=== PATIENT | male | born 1985 | race Caucasian/White ===

== ENCOUNTER 2025-01-13 09:01 | Outpatient (AMB) | payer OTHER, SELFPAY ==
--- NOTE | 2025-01-13 09:10 | A.PHYSOV ---
Vital Signs 01/13/25 09:16 Height 5 ft 8 in Weight 185 lb BMI 28.1 Intake Visit Reasons: Wants back injection-last seen June 2024 Intake Note: Patient is a 39 year old male here for low back pain. patient is interested in having another injection. 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 The patient underwent a caudal injection in May, which resulted in a 50% reduction in pain for 6 months. Patient reports his pain has returned despite performing her physician directed home exercise plan and using his medications as prescribed. Over the summer, the patient's symptoms improved to the point of having no pain at all. However, the pain has returned in the last 3-4 weeks to about a 50% level. The patient tolerated the previous procedure well and would like to have another injection for pain relief. He has pain level today of 7/10. Pain Description - Onset: The patient's symptoms returned in the last 3-4 weeks. - Severity: Pain is currently at about 50% of its previous level. - Relieving Factors: A previous caudal injection in May provided significant pain relief, with symptoms abating completely over the summer. Procedure: Caudal injection 06/05/2024 50% reduction of his pain [facility] Surgical History History of cancer surgery Social History Alcohol intake: current Alcohol intake frequency: holidays/special occasions only Patient Tobacco Use Status: Never used Tobacco Use of substances other than those prescribed or required for medical reasons: No Current occupational status: employed Review of Systems Narrative Review of Systems - Musculoskeletal: Reports recurrence of chronic pain. Physical Exam Exam Exam: Physical Exam Lumbar Spine: Examination of his lumbar spine, there is no visible swelling or deformity. He is tender to lower lumbar facets. Has full range of motion of his lumbar spine with pain. He does have an increase in pain with facet loading. Special Tests: Lhermittes sign was negative Heel Toe walk is normal Left straight leg raise: Negative Right straight leg raise: Negative Special tests More test is negative Ganslen's test is negative SI Joint compression test negative Janina test negative Piriformis stretch is negative Lower Extremities: Full range of motion bilateral lower extremities. No calf pain or edema. Neuro: Sensation: Intact to lower extremities bilaterally Strength L2 (Psoas): 5/5 on the left and 5/5 on the right. L3 (Quads): 5/5 on the left and 5/5 on the right. L4 (Ant tibialis): 5/5 on the left and 5/5 on the right. L5 (EHL) 5/5 on the left and 5/5 on the right. S1 (Gastroc): 5/5 on the left and 5/5 on the right. DTR L4: (Patellar) Left 2 Right 2 S1: (Achilles) Left 1 Right 1 Babinski Downgoing No pathologic clonus. No involuntary movement. Vital Signs: BMI result Body Mass Index 28.1 Assessment & Plan Assessment & Plan (1) Lumbar radiculopathy: Code(s): M54.16 - Radiculopathy, lumbar region Category: Medical (2) Lumbar spondylosis: Code(s): M47.816 - Spondylosis without myelopathy or radiculopathy, lumbar region Category: Medical Plan Pain Management - Analgesia: The patient received significant relief from a caudal injection in May, with an initial 50% pain reduction that improved to complete resolution over the summer. - Pain has since returned to a 50% level, and the patient is requesting a repeat injection. - Adverse Effects: The patient tolerated the previous procedure well. Plan Patient was informed and verbally consented to the use of an ambient scribe for clinic note documentation during this visit. 1. Chronic Pain The patient has had a good response to a prior caudal injection for chronic pain and is experiencing a recurrence of symptoms. A repeat caudal injection is planned. Insurance authorization will be obtained for the procedure. The patient will receive a prescription for an antibiotic to be taken one hour prior to the injection. A follow-up appointment will be scheduled after the injection, which the patient can cancel if feeling well. Discussion Notes I discussed the plan to repeat the caudal injection with the patient, who is agreeable. I reviewed the patient's history, noting the excellent response to the prior injection in May, and the recent return of symptoms in the past 3-4 weeks. I explained that we would obtain insurance authorization, after which our office will call to schedule the procedure. I informed the patient that a prescription for an antibiotic will be sent to the patient's pharmacy, to be taken one hour before the injection. I also instructed the patient that a follow-up appointment would be made, but it can be canceled with a phone call if the patient's pain is well-controlled. I assisted the patient with updating the patient's preferred pharmacy. Patient Instructions - We will seek approval from your insurance company for another caudal injection. - Once approved, our staff will call you to schedule the procedure. - A prescription for an antibiotic will be sent to your pharmacy. - Please take this medication one hour before you arrive for your injection. - Please make sure your pharmacy information is up to date with our lockstitch front edge tape sewer staff. - A follow-up visit will be scheduled for you after the injection. - If you are feeling better and do not need to come in, please call our office to cancel that appointment. Medications: New levofloxacin 1 po, 1 hour prior to procedure 500 mg PO DAILY 1 tab 0RF M47.816 - Spondylosis without myelopathy or radiculopathy, lumbar region, M54.16 - Radiculopathy, lumbar region Coding Level of Care Code Tele Est Pt Level 3 (18842) Diagnoses Lumbar radiculopathy M54.16 Lumbar spondylosis M47.816
[2025-01-13 09:16] VITALS: BMI 28.1
--- OUTSIDE RECORDS SUMMARY | 2025-01-13 09:34 | XMS_ITS | Clinical Summary ---
Author Organization [facility] Address [address] [place] [address] Care Team Providers Care Emergency Nurse Name Role Phone Unavailable Primary Care Provider Unavailabl e Social History Tobacco Use Types Packs/Day Years Used Date Smoking Tobacco: Never Assessed Sex and Gender Information Value Date Recorded Sex Assigned at Not on file Gender Identity Not on file Sexual Orientation Not on file Plan of Treatment Not on file
--- OUTSIDE RECORDS SUMMARY | 2025-01-13 09:34 | XMS_ITS | Clinical Summary ---
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 Circuit Board Assembler Name Role Phone Pardeep Prince NP Primary Care Provide r Allergies No known active allergies Medications No known medications Active Problems Problem Noted Date Diagnosed Date Encounter for screening colonoscopy 10/06/2018 Adenocarcinoma of colon 01/19/2016 Encounters Date Type Department Care Team Description 10/21/2024 11:15 AM EDT Office Visit [facility] Internal Medicine [address] [place] [phone] Marketing Technology Specialist: Pardeep Ocasio NP Healthcare maintenance (Primary Dx); Screening for HIV (human immunodeficiency virus); Need for hepatitis C screening test from Last 3 Months Family History Medical History Relation Name Comments No Known Problems Brother Wang Syndrome Father No Known Problems Mother Relation Name Status Comments Brother Alive Father Alive Mother Alive Social History Tobacco Use Types Packs/Day Years Used Date Smoking Tobacco: Never Smokeless Tobacco: Never Comments:: Alcohol Use Standard Drinks/Week Comments Yes 0 (1 standard drink = 0.6 oz pur e alcohol) socially Hunger Vital Sign Answer Date Recorded Within the past 12 months, y ou worried that your food would run out before you got the money to buy more. Never true 10/15/19 25 Within the past 12 months, t he food you bought just didn't last and you didn't have money to get more. Never true 10/14/2024 [facility] Utilities Answer Date Recorded In the past 12 months has e [place], oil, or water [employer] threatened to shut off services in your home? No 10/14/2024 Transportation Answer Date Recorded In the past 12 months, has l ack of reliable transportation kept you from medical appointments, meetings, work or from getting things needed for daily living? No 10/14/2024 Housing Answer Date Recorded Housing Risk Low 2 10/14/2024 Housing Risk Medium Not on file 10/14/2024 Housing Risk High Not on file 10/14/2024 What is your living situation today? 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 Not on file Not on file Last Filed Vital Signs Vital Sign Reading Time Taken Comments Blood Pressure 118/80 10/21/2024 11:44 AM EDT Pulse 79 10/21/2024 11:13 AM EDT Temperature 36.4 C (97.5 F) 10/21/2024 11:13 AM EDT Respiratory Rate 18 01/26/2019 11:1 4 AM EST Oxygen Saturation 100% 01/26/2019 11: 14 AM EST Inhaled Oxygen Concentration - - Weight 86.1 kg (189 lb 12.8 oz) 025 11:13 AM EDT Height 170.2 cm (5' 7 ) 01/26/2019 10:0 2 AM EST Body Mass Index 29.73 01/26/2019 10:02 AM EST Plan of Treatment Upcoming Encounters Date Type Department Care Team (Late st Contact Info) Description 10/25/2025 10:15 AM EDT Office Visit [facility] Internal Medicine [address] [place] [address] Marketing Technology Specialist: Pardeep Ocasio HEALTH ANALYST [address], [place] [id number] Health Maintenance Due Date Last Done Comments Varicella Vaccines (1 of 2 - 13+ 2-dose series) 08/09/2000 Pneumococcal Vaccine: Pediatric (0-5 Years) and At-Risk Patients (6-50 Years) (1 of 2 - PCV) 08/09/2006 COVID-19 Vaccine (2 - Pfizer risk series) 06/12/2020 05/22/2020 Influenza Vaccine (#1) 2024 2, 11/01/2016, 12/22/2015, Additional history exists Depression Screening and Follow-Up 10/14/2025 10/14/2024 [employer] [facility] [employer] Annual Screening 10/14/2025 10/14/2024 DTaP,Tdap,and Td Vaccines (9 - Td or Tdap) 06/04/2033 06/05/2023, 10/10/2016, 08/02/2005, Additional history exists HIV Screening 10/21/2036 Postponed from 1987 (Patient Declined) Hepatitis B Vaccines Completed 02/16/1999, 11/10/1998, 10/10/1998 Alcohol/Substance Use Screening Completed 10/14/2024 Hepatitis C Screening Discontinued Procedures * Due to [place] [employer] law, this organization might not be sharing negative HIV tests. Procedure Name Priority Date/Time Associated Diagnosis Comments HEMOGLOBIN A1C Routine 10/21/2024 11:55 AM EDT Healthcare maintenance COMPREHENSIVE METABOLIC PANEL Routine 10/21/2024 11:55 AM EDT Healthcare maintenance LIPID PANEL W/REFLEX TO DIRECT LDL Routine 10/21/2024 11:55 AM EDT Healthcare maintenance CBC AUTO DIFFERENTIAL Routine 10/21/2024 11:55 AM EDT Healthcare maintenance from Last 3 Months Results * Due to [place] [employer] law, this organization might not be sharing negative HIV tests. * (ABNORMAL) Lipid Panel w/Reflex to Direct LDL (10/21/2024 11:55 AM EDT) Cholesterol 177 <=199 mg/dL 10/21/2024 5:17 PM EDT [facility] Triglycerides 98 <=149 mg/dL 10/21/2024 5:17 PM EDT [facility] Cholesterol, HDL 60(H) 40 - 59 mg/dL 10/21/2024 5:17 PM EDT [email or web address] Cholesterol, Non-HDL 117 mg/dL 10/21/2024 5:17 PM EDT [facility]LaZ[facility]WA [facility] LDL Cholesterol 97 <100 mg/dL [facility] MAN[facility] 10/21/2024 5:17 PM EDT [facility] Comment:LDL-C is calculated using the Friedewald calculation. VLDL 19.6 mg/dL [facility] 10/21/2024 5:17 PM EDT [facility] Cholesterol/HDL Ratio 3.0 [facility] MANUAL 10/21/2024 5:17 PM EDT [facility]annado[facility] Blood Structure of peripheral vein / Unknown Venipuncture / Unknown 10/21/2024 11:55 AM EDT 10/21/2024 11:55 AM EDT Narrative [facility] - 10/21/2024 5:17 PM EDT Adult Treatment Panel III Guidelines of NCEP 2001 Category: Total Cholesterol (mg/dL) Desirable <200 Borderline High 200-239 High >=240 Category: LDL Cholesterol (mg/dL) Optimal <100 Near Optimal/Above Optimal 100-129 Borderline High 130-159 High 160-189 Very High >=190 Category: HDL Cholesterol (mg/dL) Low <40 High >=60 NCEP's Expert Panel on Blood Cholesterol in Children and Adolescents Category: Total Cholesterol (mg/dL) Desirable <170 Borderline High 170-199 High >=200 Category: LDL Cholesterol (mg/dL) Desirable <110 Borderline High 110-129 High >=130 us Pardeep Prince HEALTH ANALYST LAB BLOOD ORDERABLES Final Result [facility] [address] [place] [address], [place] * CBC Auto Differential (10/21/2024 11:55 AM EDT) WBC 7.1 3.8 - 10.8 10*3/uL 10/21/2024 2:10 PM EDT [facility] RBC 5.72 4.20 - 5.80 10*6/uL 10/21/2024 2:10 PM EDT [facility] Hemoglobin 16.2 13.2 - 17.1 g/dL 10/21/2024 2:10 PM EDT [facility] Hematocrit 48.2 38.5 - 50.0 % 10/21/2024 2:10 PM EDT [facility] MCV 84.3 80.0 - 100.0 fL 10/21/2024 2:10 PM EDT [facility] MCH 28.3 27.0 - 33.0 pg 10/21/2024 2:10 PM EDT [facility] MCHC 33.6 32.0 - 36.0 g/dL 10/21/2024 2:10 PM EDT [facility] RDW 12.6 11.0 - 15.0 % 10/21/2024 2:10 PM EDT [facility] Platelets 246 140 - 400 10*3/uL 10/21/2024 2:10 PM EDT [facility] MPV 10.2 7.5 - 12.5 fL 10/21/2024 2:10 PM EDT [facility] Neutrophil % 62.3 % 10/21/2024 2:10 PM EDT [facility] Immature Grans % 0.4 0.0 - 0.9 % 10/21/2024 2:10 PM EDT [facility] Lymphocyte % 23.2 % 10/21/2024 2:10 PM EDT [facility] Monocyte % 11.9 % 10/21/2024 2:10 PM EDT [facility] Eosinophil % 1.5 % 10/21/2024 2:10 PM EDT [facility] Basophil % 0.7 % 10/21/2024 2:10 PM EDT [facility] Neutrophil # 4.43 1.50 - 7.80 10*3/uL 10/21/2024 2:10 PM EDT [facility] Immature Grans # 0.03 <=0.03 10*3/uL 10/21/2024 2:10 PM EDT [facility] Lymphocyte # 1.70 0.85 - 3.90 10*3/uL 10/21/2024 2:10 PM EDT [facility] Monocyte # 0.90 0.20 - 0.95 10*3/uL 10/21/2024 2:10 PM EDT [facility] Eosinophil # 0.10 0.02 - 0.50 10*3/uL 10/21/2024 2:10 PM EDT [facility] Basophil # 0.10 0.00 - 0.20 10*3/uL 10/21/2024 2:10 PM EDT [facility] nRBC % 0.0 /100 WBCs 10/21/2024 2:10 PM EDT [facility] nRBC # <0.01 <0.01 10*3/uL 10/21/2024 2:10 PM EDT [facility] Blood Structure of peripheral vein / Unknown Venipuncture / Unknown 10/21/2024 11:55 AM EDT 10/21/2024 11:55 AM EDT us Pardeep Prince HEALTH ANALYST LAB BLOOD ORDERABLES Final Result [facility] [address] [place] [address], * Hemoglobin A1c (10/21/2024 11:55 AM EDT) Hemoglobin A1C 4.8 <5.7 % 10/21/2024 9:07 PM EDT [facility] Comment: For the purpose of screening for the presence of diabetes: <5.7% Consistent with the absence of diabetes 5.7-6.4% Consistent with increased risk for diabetes (prediabetes) > or =6.5% Consistent with diabetes This assay result is consistent with a decreased risk of diabetes. Currently, no consensus exists regarding use of hemoglobin A1c for diagnosis of diabetes in children. According to [place] Diabetes Association (ADA) guidelines, hemoglobin A1c <7.0% represents optimal control in non- diabetic patients. Different metrics may apply to specific patient populations. Standards of Medical Care in Diabetes(ADA). eAG (MG/DL) 91 mg/dL 10/21/2024 9:07 PM EDT [facility] eAG (MMOL/L) 5.0 mmol/L 10/21/2024 9:07 PM EDT [facility] Blood Structure of peripheral vein / Unknown Venipuncture / Unknown 10/21/2024 11:55 AM EDT 10/21/2024 11:55 AM EDT [facility] - 10/21/2024 9:07 PM EDT [facility] Received Date: Pardeep Prince HEALTH ANALYST LAB BLOOD ORDERABLES Final Result [facility] [address] [facility] [address] [facility], [place] [address], [facility] [address], [place] [address], * Comprehensive metabolic panel (10/21/2024 11:55 AM EDT) NA 141 135 - 145 mmol/L 10/21/2024 5:17 PM EDT [facility] K 4.1 3.5 - 5.3 mmol/L 10/21/2024 5:17 PM EDT [facility] Cl 103 98 - 107 mmol/L 10/21/2024 5:17 PM EDT [facility] CO2 27 22 - 32 mmol/L 10/21/2024 5:17 PM EDT [facility] Anion Gap 11 5 - 15 [facility] 10/21/2024 5:17 PM EDT [facility] Glucose 98 65 - 99 mg/dL 10/21/2024 5:17 PM EDT [facility] Creatinine 0.92 0.60 - 1.30 mg/dL 10/21/2024 5:17 PM EDT [facility] Calcium 10.1 8.6 - 10.5 mg/dL 10/21/2024 5:17 PM EDT [facility] Total Protein 7.8 6.0 - 8.0 g/dL 10/21/2024 5:17 PM EDT [facility] Albumin 4.8 3.5 - 5.2 g/dL 10/21/2024 5:17 PM EDT [facility] Bilirubin, Total 0.5 0.2 - 1.2 mg/dL 10/21/2024 5:17 PM EDT [facility] Alkaline Phosphatase 55 35 - 129 U/L 10/21/2024 5:17 PM EDT [facility] AST 28 10 - 40 U/L 10/21/2024 5:17 PM EDT [facility] ALT 22 10 - 40 U/L 10/21/2024 5:17 PM EDT [facility] BUN 13 7 - 23 mg/dL 10/21/2024 5:17 PM EDT [facility] eGFR >90 >=60 mL/min/1. 73m2 [facility] 10/21/2024 5:17 PM EDT [facility] Comment:The estimated glomer ular filtration rate (eGFR) is calculated using a new formula developed by the NKF-ASN task force to eliminate race-based correction factors. The new formula uses serum/plasma creatinine, age, and gender to determine eGFR. A value below 60mls/min might indicate kidney disease and will be flagged. For additional information, see Prieto et al, Am J Kidney Dis. 2021;79(2):268- 288, A Unifying Approach for GFR estimation: Recommendations of the NKF-ASN Task Force on Reassessing the Inclusion of Race in Diagnosing Kidney Disease . Globulin, Total 3.0 2.1 - 4.2 g/dL [facility] 10/21/2024 5:17 PM EDT [facility] A/G Ratio 1.6 1.5 - 3.0 [facility] 10/21/2024 5:17 PM EDT [facility] Blood Structure of peripheral vein / Unknown Venipuncture / Unknown 10/21/2024 11:55 AM EDT 10/21/2024 11:55 AM EDT Pardeep Prince HEALTH ANALYST LAB BLOOD ORDERABLES Final Result [facility] [address] [place] [address], from Last 3 Months Insurance AETNA AETNA Advance Directives * Full Code (Latest Code Status on File) Date Activated Date Inactivated Comments 01/21/2017 8:39 AM 01/21/2017 11:52 AM Care Teams Hand Printed Circuit Board Assembler Relationship Specialty Start Date End Date Pardeep Prince NP [address] [place] [id number] PCP - General Family Medicine 10/15/24
--- OUTSIDE RECORDS SUMMARY | 2025-01-13 09:34 | XMS_ITS | Clinical Summary ---
Author Organization [facility] [address] [facility] l[address] Address [address] [place] [address] Phone Care Team Providers Care Manufacturing Manager Name Role Phone Osito Campbell MD Primary Care Provider [phone] Allergies No known active allergies Medications ketoconazole (NIZORAL) 2 % cream Apply topically 1 (one) time per week. 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 Colonoscopy recommended yearly. Upper endoscopy every 2-3 years. Urine cytology yearly. EGD 09/27 neg. 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 Surgery 02/07/2016: pT3N0. No adjuvant rx recommended. Sigmoidoscopy 02/01 Acne 08/26/2008 Overview (03/01/2024): Derm, accutane Varicella 08/26/2008 Overview (03/01/2024): childhood Undiagnosed cardiac murmurs 08/20/2006 Immunizations Immunization Administration Dates Next Due DTP 06/30/1992, 0,02/21/1988,12/21,1987 [id number] (Pentacel) 2mo to less than 5yo 09/09/1989 Hepatitis B Pediatric (Enger ix B; Recombivax HB) to less than 20 yo 02/16/1999,11/10/1998,10/10/1998 Influenza Quadravalent, MDCK , 0.5ml, preservative free (Flucelvax) 6mo and older 12/28/2021 Influenza Quadravalent, MDCK , 0.5ml, with preservative (Flucelvax) 6mo and older 11/01/2016 Influenza trivalent, with pr eservative (Fluzone; Afluria) 6mo and older 12/22/2015,12/29/2012 MMR, measles mumps and rubel la Live (Priorix; M-M-R II) 12mo and older 09/21/1997,11/23/1988 Meningococcal MCV4P 08/02/2005 Meningococcal Polysaccharide 09/27/2004 OPV 06/30/1992, 0,1987,10/20 [employer] SARS-CoV-2 COVID-19, mRNA, LNP-S, preservative free 05/22/2020 Td Tetanus diptheria (Tdvax) 7yo and older 1999 Tdap Tetanus diptheria acell ular pertussis (Boostrix; Adacel) 7yo and older 06/05/2023,10/10/2016,08/02/2005 Surgical History Surgery Date Site/Laterality Comments UPPER GASTROINTESTINAL ENDOSCOPY 01/03/2016 PROCEDURE: [place] UPPER GI ENDOSCOPY PERFORMED; COMMENT: Visually normal; duodenal biopsies: normal. COLONOSCOPY 01/03/2016 PROCEDURE: HISTORICAL COLONOSCOPY; COMMENT: Tumor in the cecum: adenocarcinoma. OTHER SURGICAL HISTORY 02/07/2016 PROCEDURE: [place] COLECTOMY PARTIAL W/ANASTOMOSIS; COMMENT: [facility]; subtotal colectomy. WISDOM TOOTH EXTRACTION PROCEDURE: HISTORICAL WISDOM TEETH EXTRACTION Medical History Medical History Date Comments Other acne DX:Other acne Scoliosis (and kyphoscoliosi s), idiopathic DX:Scoliosis (and kyphoscoli osis), idiopathic Varicella without mention of complication DX:Varicella without mention of complication Cecal cancer (CMS/HCC V24, C MS/HCC V28) 01/03/2016 DX:Cecal cancer (HCC); COMME NT: Colon cancer involving the cecum, colonoscopy 01/03/2016. 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 GERD with esophagitis DX:GERD wi th esophagitis Family History Medical History Relation Name Comments No Known Problems Brother No Known Problems Father Colon polyps Father's side aunt No Known Problems Maternal Grandfather No Known Problems Maternal Grandmother Other: stress Mother No Known Problems Paternal Grandfather Colon polyps Paternal Grandmother Wang s yndrome Coronary artery disease Neg Hx Diabetes Neg Hx Relation Name Status Comments Brother Alive [phone] Father Alive [phone] Father's side Alive Maternal Grandfather Maternal Grandmother Mother Alive [phone] Paternal Grandfather Paternal Grandmother Social History Tobacco Use Types Packs/Day Years Used Date Smoking Tobacco: Never Smokeless Tobacco: Never Alcohol Use Standard Drinks/Week Comments Yes 2 (1 standard drink = 0.6 oz pur e alcohol) Sex and Gender Information Value Date Recorded Sex Assigned at Not on file Legal Sex Male 7:09 PM EST Gender Identity Not on file Sexual Orientation Not on file Obstetrics History Last Filed Vital Signs Vital Sign Reading Time Taken Comments Blood Pressure 124/71 03/27/2024 3:09 PM EST Pulse 63 03/27/2024 3:09 PM EST Temperature 36.7 C (98.1 F) 03/27/2024 3:09 PM EST Respiratory Rate - - Oxygen Saturation - - Inhaled Oxygen Concentration - - Weight 85.3 kg (188 lb) 03/27/2024 3:09 PM EST Height 170.2 cm (5' 7 ) 03/27/2024 3:09 PM EST Body Mass Index 29.44 03/27/2024 3:09 PM EST Plan of Treatment Health Maintenance Due Date Last Done Comments HPV Vaccines (1 - 3-dose SCDM series) 08/09/2014 COVID-19 Vaccine (3 - Pfizer risk series) 07/11/2020 06/13/2020, 05/22/2020 Colorectal Cancer Screening: Colonoscopy 01/25/2021 01/26/2020 HIV Screening 01/13/2022 Hepatitis C Screening 01/13/2022 Social Influencers of Health Screening 01/13/2022 Depression Screening 02/12/2024 Influenza Vaccine (#1) 2024 , 11/01/2016, 12/22/2015, Additional history exists Cholesterol Screening (Lipid Panel) 06/04/2028 06/05/2023, 06/05/2023 DTaP,Tdap,and Td Vaccines (10 - Td or Tdap) 06/04/2033 06/05/2023, 10/10/2016, 08/02/2005, Additional history exists RSV Immunization Adult Patients (1 - 1-dose 75+ series) 08/09/2062 HIB Vaccines Completed 09/09/1989, 09/09/1989 IPV Vaccines Completed 06/30/1992, 08/13, 02/25/1989, Additional history exists MMR Vaccines Completed 09/21/1997, 11/23/1988 Hepatitis B Vaccines Completed 02/16/1999, 11/10/1998, 10/10/1998 Meningococcal ACWY Vaccine Completed 08/02/2005, Varicella Vaccines Aged Out 08/26/2008 No longer eligible based on patient's age to complete this topic Hepatitis A Vaccines Aged Out No long er eligible based on patient's age to complete this topic Meningococcal B Vaccine Aged Out No l onger eligible based on patient's age to complete this topic Pneumococcal Vaccine: Pediatrics (0 to 5 Years) and At-Risk Patients (6 to 49 Years) Aged Out No longer eligible based on patient's age to complete this topic RSV Immunization Patients Under 20 months Aged Out No longer eligible based on patient's age to complete this topic Procedures Procedure Name Priority Date/Time Associated Diagnosis Comments LIPID PANEL Routine 06/05/2023 HM COLONOSCOPY Routine 01/26/2020 from Last 3 Months or Most Recently Relevant to Health Maintenance Results * Lipid panel (06/05/2023) LDL/HDL Ratio 3 0 - 4 Triglycerides 61 0 - 150 mg/dL Cholesterol 175 0 - 200 mg/dL HDL 64 >=40 mg/dL LDL Cholesterol 99 0 - 100 mg/dL Blood Venous blood specimen / Unknown Historical Provider LAB BLOOD ORDERABLES Cookie l Result * Colonoscopy (01/26/2020) Colonoscopy NO INTERPRETATION , ABSTRACTED Anatomical Region Laterality Modality Other us Historical Provider HEALTH MAINTENANCE Final Result from Last 3 Months or Most Recently Relevant to Health Maintenance Insurance [facility] [place] [phone] AETNA Care Teams Manufacturing Manager Relationship Specialty Start Date End Date Osito Campbell MD [address] [place] [id number] PCP - General 05/12/08
== END 2025-01-13 09:31 | disposition home or self-care (01) ==
LOC: HO.HPHYS 09:02
PROVIDERS: Visit Provider Physician Assistant
DX: M54.16 Radiculopathy, lumbar region (principal); M47.816 Spondylosis without myelopathy or radiculopathy, lumbar region
CPT/HCPCS: 99213

== ENCOUNTER 2025-01-29 11:01 | Outpatient (AMB) | payer OTHER, SELFPAY ==
[2025-01-29 11:04] VITALS: BP 137/82; PULSE 65; TEMP 36.6; BMI 28.1
--- NOTE | 2025-01-29 11:04 | A.PHYSOV ---
Vital Signs 01/29/25 11:04 Height 5 ft 8 in Weight 185 lb BMI 28.1 BP 137/82 Pulse 65 Temp 97.9 F Intake Visit Reasons: Caudal Epidural injection Allergies No Known Allergies Allergy (Verified 01/29/25 11:04) [facility] Surgical History History of cancer surgery Social History Alcohol intake: current Alcohol intake frequency: holidays/special occasions only Patient Tobacco Use Status: Never used Tobacco Current occupational status: employed Physical Exam Vital Signs: Last Vital Signs Temp 97.9 F 01/29/25 11:04 Pulse 65 01/29/25 11:04 BP 137/82 01/29/25 11:04 BMI result Body Mass Index 28.1 Office Procedures AMB Caudal Epidural Injection AMB Caudal Epidural Injection Procedure Details: Procedure performed: Caudal Epidual Injection under fluoroscopic guidance Pre-op diagnosis: Lumbar radiculitis Postop diagnosis: The same Anesthesia: Local After informed consent was obtained patient was brought into the procedure room and placed in the prone position on the procedure table. Skin over sacral area was prepped and draped in usual sterile manner. Sacral hiatus was visualized utilizing fluoroscopy. 3.5 in 22 gauge spinal needle was introduced percutaneously and advanced into the spinal canal via sacral hiatus. Needle placement was verified utilizing 3 cc of Omnipaque contrast solution. Total volume of 10 cc containing 3 cc of 1% lidocaine, 40 mg of triamcinolone, normal saline solution was injected after negative aspiration for blood and cerebrospinal fluid. Radiation exposure was recorded and documented in the chart. Caudal Epidural Injection - 94176 use with FL Gd order: Caudal Epidural Injection - 01579 All charges added?: Procedure code (CPT) selection complete Office Meds Kenalog 40 mg/mL suspension for injection Performing Provider: John Montanez DO Performing Location: [facility] Administered by: John Montanez DO on 01/29/25 11:06 Dose Route Admin Location Dispensed Lot Number Expiration Date [employer] 40 mg epidural 1 mL [id number] [employer] Total Dispensed Waste 1 mL 0 % lidocaine (PF) 10 mg/mL (1 %) injection solution Performing Provider: John Montanez DO Performing Location: [facility] Administered by: John Montanez DO on 01/29/25 11:06 Dose Route Admin Location Dispensed Lot Number Expiration Date [facility] [employer] 100 mg epidural 10 mL [id number] [facility] Total Dispensed Waste 10 mL 0 % Omnipaque 300 300 mg iodine/mL intravenous solution Performing Provider: John Montanez DO Performing Location: [facility] Administered by: John Montanez DO on 01/29/25 11:06 Dose Route Admin Location Dispensed Lot Number Expiration Date [facility] [employer] 3 mL epidural 10 mL [id number] [employer] Total Dispensed Waste 10 mL 70 % Assessment & Plan Assessment & Plan (1) Lumbar radiculopathy: Code(s): M54.16 - Radiculopathy, lumbar region Category: Medical Plan Procedure Orders: Orders FL Gd Caudal Epidural Inj Today M54.16 - Radiculopathy, lumbar region AMB Caudal Epidural Injection Today M54.16 - Radiculopathy, lumbar region Coding Level of Care Code Procedure Only Diagnoses Lumbar radiculopathy M54.16 CPT Codes AMB Caudal Epidural Injection - Caudal Epidural Injection: Caudal Epidural Injection - [id number] ([id number])
--- OUTSIDE RECORDS SUMMARY | 2025-01-29 12:55 | XMS_ITS | Clinical Summary ---
Author Organization [facility] Prior to 07/11/24 Address [address] [place] [address] Care Team Providers Care Professor Of Business Administration Name Role Phone Unavailable Primary Care Provider Unavailabl e Social History Tobacco Use Types Packs/Day Years Used Date Smoking Tobacco: Never Assessed Sex and Gender Information Value Date Recorded Sex Assigned at Not on file Gender Identity Not on file Sexual Orientation Not on file Plan of Treatment Not on file
--- OUTSIDE RECORDS SUMMARY | 2025-01-29 12:55 | XMS_ITS | Clinical Summary ---
Author Organization [facility] Address [address] [place] [address] Care Team Providers Care Director Workforce Management Name Role Phone Pardeep Prince NP Primary Care Provide r Allergies No known active allergies Medications No known medications Active Problems Problem Noted Date Diagnosed Date Encounter for screening colonoscopy 10/06/2018 Adenocarcinoma of colon 01/19/2016 Family History Medical History Relation Name Comments [...] money to get more. Never true 10/14/2024 [facility] Utilities Answer Date Recorded In the past 12 months has th e electric, gas, oil, or water company threatened to shut off services in your [...] Description 10/25/2025 10:15 AM EDT Office Visit [facility] [address] [place] [phone] Ticket Clerk: Pardeep Ocasio NP [address] [place] [phone] Health Maintenance Due Date Last Done Comments Varicella Vaccines (1 of 2 - 13+ 2-dose series) 08/09/2000 Pneumococcal Vaccine: Pediatric (0-5 Years) and At-Risk Patients (6-50 Years) (1 of 2 - PCV) 08/09/2006 COVID-19 Vaccine (2 - Pfizer risk series) 06/12/2020 05/22/2020 Influenza Vaccine (#1) 2024 2, 11/01/2016, 12/22/2015, Additional history exists Depression Screening and Follow-Up 10/14/2025 10/14/2024 [facility] D[employer] of Health Annual Screening 10/14/2025 10/14/2024 DTaP,Tdap,and Td Vaccines (9 - Td or Tdap) 06/04/2033 06/05/2023, 10/10/2016, 08/02/2005, Additional history exists HIV Screening 10/21/2036 Postponed from 1987 (Patient Declined) Hepatitis B Vaccines Completed 02/16/1999, 11/10/1998, 10/10/1998 Alcohol/Substance Use Screening Completed 10/14/2024 Hepatitis C Screening Discontinued Insurance AETNA AETNA Advance Directives * Full Code (Latest Code Status on File) Date Activated Date Inactivated Comments 01/21/2017 8:39 AM 01/21/2017 11:52 AM Care Teams Director Workforce Management Relationship Specialty Start Date End Date Pardeep Prince NP [address] [place] [id number] PCP - General Family Medicine 10/15/24
--- OUTSIDE RECORDS SUMMARY | 2025-01-29 12:55 | XMS_ITS | Clinical Summary ---
Author Organization [facility] [address] [facility] [address] Address [address] [place] [address] Phone Care Team Providers Care Flume Worker Name Role Phone Osito Campbell MD Primary Care Provider [phone] Allergies No known active allergies Medications ketoconazole [...] Repeat 2 yrs EGD 02/01 Cecal cancer 01/03/2016 Overview (03/01/2024): Adenocarcinoma involving the cecum, colonoscopy 01/03/2016. Surgery 02/07/2016: pT3N0. No adjuvant rx recommended. Sigmoidoscopy 02/01 Acne 08/26/2008 Overview (03/01/2024): Derm, accutane Varicella 08/26/2008 Overview (03/01/2024): childhood Undiagnosed cardiac murmurs 08/20/2006 Immunizations Immunization Administration Dates Next Due DTP 06/30/1992, 0,02/21/1988,12/21,1987 [id number] (Pentacel) 2mo to less than 5yo 09/09/1989 [...] 08/02/2005 Meningococcal Polysaccharide 09/27/2004 OPV 06/30/1992, 0,1987,10/20 Pfizer SARS-CoV-2 COVID-19, mRNA, LNP-S, preservative free 05/22/2020 Td Tetanus diptheria (Tdvax) 7yo and older 1999 Tdap Tetanus diptheria acell ular pertussis (Boostrix; Adacel) 7yo and older 06/05/2023,10/10/2016,08/02/2005 Surgical History Surgery Date Site/Laterality Comments UPPER GASTROINTESTINAL ENDOSCOPY 01/03/2016 PROCEDURE: [place] UPPER GI ENDOSCOPY PERFORMED; COMMENT: Visually normal; duodenal biopsies: normal. COLONOSCOPY 01/03/2016 PROCEDURE: HISTORICAL COLONOSCOPY; COMMENT: Tumor in the cecum: adenocarcinoma. OTHER SURGICAL HISTORY 02/07/2016 PROCEDURE: [place] COLECTOMY PARTIAL W/ANASTOMOSIS; COMMENT: [facility]; subtotal colectomy. [...] Hx Relation Name Status Comments Brother Alive [phone] Father Alive [phone] Father's side Alive Maternal Grandfather Maternal Grandmother Mother Alive [phone] Paternal Grandfather Paternal Grandmother Social History Tobacco [...] on file Sexual Orientation Not on file Last Filed Vital Signs [...] Depression Screening 02/12/2024 Influenza Vaccine (#1) 2024 2, 11/01/2016, 12/22/2015, Additional history exists Cholesterol Screening [...] , ABSTRACTED Anatomical Region Laterality Modality Other Historical Provider HEALTH MAINTENANCE Final Result from Last 3 Months or Most Recently Relevant to Health Maintenance Insurance AET[employer] Care Teams Flume Worker Relationship Specialty Start Date End Date Ostio Campbell MD [address] [place] [id number] PCP - General 05/12/08
== END 2025-01-29 11:29 | disposition home or self-care (01) ==
LOC: HO.HPHYS 11:02
PROVIDERS: Visit Provider Physical Medicine & Rehabilitation
DX: M54.16 Radiculopathy, lumbar region (principal)
CPT/HCPCS: 62323

== ENCOUNTER 2025-01-29 11:01 | Outpatient (REF) | payer OTHER, SELFPAY | END 2025-01-29 11:02 | disposition home or self-care (01) | LOC: HO.HPHYSR 11:01 | PROVIDERS: Visit Provider Physical Medicine & Rehabilitation | DX: M54.16 Radiculopathy, lumbar region (principal) | CPT/HCPCS: 62323; J2003; J3301; Q9967 ==